=== PATIENT | female | born 1995 | race Caucasian/White ===

== ENCOUNTER 2017-05-28 21:24 | Emergency (ER) | payer OTHER ==
[2017-05-28] MEDS ORDERED: Metoclopramide 10 MG/2 ML SDV IV ONE (22:09)
[2017-05-28] MEDS ORDERED: LORazepam 2 MG/ML MDV IVPUSH ONE (22:09)
[2017-05-28] MEDS ORDERED: Sodium Chloride 0.9% 1,000 ML IV ONE (22:09)
[2017-05-28] MEDS ORDERED: methylPREDNISolone Sodium Succinate 125 MG/2 ML SDV IVPUSH ONE (22:09)
[2017-05-28] MEDS ORDERED: Ketorolac 30 MG/ML SDV IVPUSH ONE (22:09)
[2017-05-28] MEDS ORDERED: diphenhydrAMINE 50 MG/ML SDV IVPUSH ONE (22:09)
[2017-05-28] MEDS ORDERED: Sodium Chloride 0.9% 2.5 ML Syringe FLUSH PRN (22:09)
--- NOTE | 2017-05-28 22:13 | EDM.PDOC ---
ED HPI GENERAL MEDICAL PROBLEM - General Chief Complaint: Headache Stated Complaint: SICK Time Seen by Provider: 05/28/17 22:04 - History of Present Illness INITIAL COMMENTS - FREE TEXT/NARRATIVE: HISTORY AND PHYSICAL: History of present illness: The patient is a 21-year-old female who has had a history of migraine headaches since she was 13 years old and usually intercepts of migraine with Imitrex and Zofran but today she was at work when the headache started coming on and she could not take her medications and now she has had intractable vomiting and unable to take her oral Imitrex. Patient only follows with Dr. Olson at [facility] and she has never seen a headache specialist or neurologist. Patient says that usually she gets more headaches around her period and she has been on control to try to help control that. She says she usually gets migraines about 3-4 times a month and they are usually in the back of her head across the frontal area and this headache is typical in character and quality. She has had no recent fevers chills head trauma neck pain upper respiratory symptoms or sinus issues. She has no abdominal pain except when she gets the nausea and she starts vomiting. Patient was hyperventilating in triage and very anxious and she had a near fainting episode all waiting to come back and she says this is not typical of her but then again usually the Zofran will control her vomiting and it did not help this evening which has stressed her. She currently has no extremity complaints and no neurosensory changes in her extremities and no neck or back pain. Review of systems: As per history of present illness and below otherwise all systems reviewed and negative. Past medical history: As per history of present illness and as reviewed below otherwise noncontributory. Surgical history: As per history of present illness and as reviewed below otherwise noncontributory. Social history: No reported history of drug or alcohol abuse. Family history: As per history of present illness and as reviewed below otherwise noncontributory. Physical exam: Gen.: Well-developed well-nourished female speaking clearly and easily in the ED and is nontoxic. Vital signs are noted by me HEENT: Atraumatic, normocephalic, pupils reactive, negative for conjunctival pallor or scleral icterus, mucous membranes moist, throat clear, neck supple, nontender, trachea midline. There is no cervical adenopathy nuchal rigidity and no scalp tenderness on palpation Lungs: Clear to auscultation, breath sounds equal bilaterally, chest nontender. Heart: S1S2, regular rate and rhythm no overt murmurs Abdomen: Soft, nondistended, nontender. Negative for masses or hepatosplenomegaly. Negative for costovertebral tenderness. Pelvis: Stable nontender. Genitourinary: Deferred. Rectal: Deferred. Extremities: Atraumatic, negative for cords or calf pain. Neurovascular unremarkable. Neuro: Awake, alert, oriented. Cranial nerves II through XII unremarkable. Cerebellum unremarkable. Motor and sensory unremarkable throughout. Exam nonfocal. Diagnostics: As the patient's headache is typical for her I will not to imaging Therapeutics: IV fluids Toradol Reglan Benadryl Ativan Solu-Medrol 2305--patient feels significantly improved and wants to go home and sleep. Impression: Migraine headache Definitive disposition and diagnosis as appropriate pending reevaluation and review of above. 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 Musculoskeletal History: Reports: None Neurological History: Reports: Migraines Psychiatric History: Reports: None Endocrine/Metabolic History: Reports: None Hematologic History: Reports: None Immunologic History: Reports: None Oncologic (Cancer) History: Reports: None Dermatologic History: Reports: None - Infectious Disease History Infectious Disease History: Reports: None - Past Surgical History Head Surgeries/Procedures: Reports: None Social & Family History - Family History Family Medical History: Noncontributory - Tobacco Use Smoking Status *Q: Never Smoker - Caffeine Use Caffeine Use: Reports: Soda - Recreational Drug Use Recreational Drug Use: No ED ROS GENERAL - Review of Systems Review Of Systems: ROS reveals no pertinent complaints other than HPI. ED EXAM, GENERAL - Physical Exam Exam: See Below (See dictation) Course - Vital Signs Last Recorded V/S: Last Vital Signs Temp 36.6 C 05/28/17 21:52 Pulse 78 05/28/17 21:52 Resp 18 05/28/17 21:52 BP 106/67 05/28/17 21:52 Pulse Ox 98 05/28/17 21:52 - Orders/Labs/Meds Orders: Active Orders 24 hr Category Date Time Status Sodium Chloride 0.9% [Saline Flush] Med 05/28/17 22:09 Active 10 ml FLUSH ASDIRECTED PRN Sodium Chloride 0.9% [Saline Flush] Med 05/28/17 22:09 Active 2.5 ml FLUSH ASDIRECTED PRN Saline Lock Insert [OM.PC] Stat Oth 05/28/17 22:09 Ordered Medication Orders Sodium Chloride (Saline Flush) 10 ml FLUSH ASDIRECTED PRN PRN Reason: Keep Vein Open Last Admin: 05/28/17 22:25 Dose: 10 ml Admin: 05/28/17 22:24 Dose: 10 ml Admin: 05/28/17 22:23 Dose: 10 ml Sodium Chloride (Saline Flush) 2.5 ml FLUSH ASDIRECTED PRN PRN Reason: Keep Vein Open Last Admin: 05/28/17 22:22 Dose: 2.5 ml Meds: Medications Generic Name Dose Route Start Last Admin Trade Name Freq PRN Reason Stop Dose Admin Sodium Chloride 10 ml 05/28/17 22:09 05/28/17 22:25 Saline Flush FLUSH 10 ml ASDIRECTED PRN Administration Keep Vein Open Sodium Chloride 2.5 ml 05/28/17 22:09 05/28/17 22:22 Saline Flush FLUSH 2.5 ml ASDIRECTED PRN Administration Keep Vein Open Discontinued Medications Generic Name Dose Route Start Last Admin Trade Name Freq PRN Reason Stop Dose Admin Diphenhydramine HCl 25 mg 05/28/17 22:09 05/28/17 22:24 Benadryl IVPUSH 05/28/17 22:10 25 mg ONETIME ONE Administration Sodium Chloride 1,000 mls @ 999 mls/hr 05/28/17 22:09 05/28/17 22:26 Normal Saline IV 05/28/17 23:09 999 mls/hr STAT ONE Administration Ketorolac Tromethamine 30 mg 05/28/17 22:09 05/28/17 22:25 Toradol IVPUSH 01/09/18 22:10 30 mg ONETIME ONE Administration Lorazepam 1 mg 05/28/17 22:09 05/28/17 22:25 Ativan IVPUSH 05/28/17 22:10 1 mg ONETIME ONE Administration Methylprednisolone Sodium Succinate 125 mg 05/28/17 22:09 05/28/17 22:24 Solu-Medrol IVPUSH 05/28/17 22:10 125 mg ONETIME ONE Administration Metoclopramide HCl 10 mg 05/28/17 22:09 05/28/17 22:23 Reglan IV 05/28/17 22:10 10 mg ONETIME ONE Administration Departure - Departure Time of Disposition: 23:10 Disposition: Home, Self-Care 01 Condition: Good Clinical Impression: Migraine - Discharge Information Referrals: PCP,None [Primary Care Provider] - Forms: ED Department Discharge Additional Instructions: The following information is given to patients seen in the emergency department who are being discharged to home. This information is to outline your options for follow-up care. We provide all patients seen in our emergency department with a follow-up referral. The need for follow-up, as well as the timing and circumstances, are variable depending upon the specifics of your emergency department visit. If you don't have a primary care physician on staff, we will provide you with a referral. We always advise you to contact your personal physician following an emergency department visit to inform them of the circumstance of the visit and for follow-up with them and/or the need for any referrals to a consulting specialist. The emergency department will also refer you to a specialist when appropriate. This referral assures that you have the opportunity for followup care with a specialist. All of these measure are taken in an effort to provide you with optimal care, which includes your followup. Under all circumstances we always encourage you to contact your private physician who remains a resource for coordinating your care. When calling for followup care, please make the office aware that this follow-up is from your recent emergency room visit. If for any reason you are refused follow-up, please contact the [facility] emergency department at and ask to speak to the emergency department charge nurse. [facility] Primary care- Internal Medicine and Family [address] [address] [facility] [address] [facility] [address] [place] [address] [facility] Specialty care-Neurology Professional Building [address] [place] [address], [address] [place] [address] Please call and schedule a follow-up with your provider at [facility] and/ or also call and schedule with our providers or neurologist as we discussed. Please use your home medications as needed for your headaches and push hydration and rest. Return to ER as needed and as discussed - My Orders Last 24 Hours: My Active Orders 05/28/17 22:09 Sodium Chloride 0.9% [Saline Flush] 10 ml FLUSH ASDIRECTED PRN Sodium Chloride 0.9% [Saline Flush] 2.5 ml FLUSH ASDIRECTED PRN Saline Lock Insert [OM.PC] Stat - Assessment/Plan Last 24 Hours: My Active Orders 05/28/17 22:09 Sodium Chloride 0.9% [Saline Flush] 10 ml FLUSH ASDIRECTED PRN Sodium Chloride 0.9% [Saline Flush] 2.5 ml FLUSH ASDIRECTED PRN Saline Lock Insert [OM.PC] Stat
[2017-05-28] MEDS: Sodium Chloride 0.9% 10 ML Syringe FLUSH PRN ×3 (22:23→22:25)
== END 2017-05-28 23:40 | disposition home or self-care (01) ==
LOC: MW.ED 21:24
DX: G43.909 Migraine, unspecified, not intractable, without status migrainosus (principal); Z88.1 Allergy status to other antibiotic agents
CPT/HCPCS: 96361; 96374; 96375; 99284; J1200; J1885; J2060; J2765; J2930; J7040; 99283

== ENCOUNTER 2021-01-13 16:58 | Emergency (ER) | payer BC, OTHER ==
--- NOTE | 2021-01-13 18:44 | CR ---
Indication: Fell down stairs and heard a pop Technique: Three views right knee Comparison: None Findings: Bones: Alignment is normal. No fractures or bone lesions. Joint spaces: Unremarkable. Soft tissues: Small suprapatellar effusion. Impression: Small suprapatellar effusion. No acute osseous abnormality. Dictated by Alyce Preston MD @ 01/13/2021 6:42:[address] Alyce Preston @ Jan 13 2021 6:42PM
--- NOTE | 2021-01-13 20:47 | EDM.PDOC ---
ED HPI GENERAL MEDICAL PROBLEM - General Chief Complaint: Lower Extremity Injury/Pain Stated Complaint: RT KNEE PAIN Time Seen by Provider: 01/13/21 19:55 Source of Information: Reports: Patient History Limitations: Reports: No Limitations - History of Present Illness INITIAL COMMENTS - FREE TEXT/NARRATIVE: HISTORY AND PHYSICAL: History of present illness: Patient is a 25-year-old female who presents emergency room today with concern of right knee injury that occurred today after falling down the stairs. Patient states that she was at the top step and twisted her right knee and fell down approximately 5 steps. Patient states that she landed on her side and did not hit her head or lose consciousness. Patient states that since the injury, she has had swelling and pain of her right knee but denies any other pain or symptoms. Patient states she also did injured the knee initially 2 months ago and feels that she possibly reinjured what ever had occurred then. Patient denies any other symptoms or concerns. Patient denies fever, chills, chest pain, shortness of breath, or cough. Denies headache, neck stiff ness, change in vision, syncope, or near syncope. Denies nausea, vomiting, abdominal pain, diarrhea, constipation, or dysuria. Has not noted any blood in urine or stool. Patient has been eating and drinking appropriately. Review of systems: As per history of present illness and below otherwise all systems reviewed and negative. Past medical history: As per history of present illness and as reviewed below otherwise noncontributory. Surgical history: As per history of present illness and as reviewed below otherwise noncontributory. Social history: See social history for further information Family history: As per history of present illness and as reviewed below otherwise noncontributory. Physical exam: General: Patient is alert, oriented, and in no acute distress. Patient laying comfortably on exam table. Vitals stable and reviewed by me HEENT: Atraumatic, normocephalic, pupils equal and reactive bilaterally, negative for conjunctival pallor or scleral icterus, mucous membranes moist, TMs normal bilaterally, throat clear, neck supple, nontender, trachea midline. No drooling or trismus noted. No meningeal signs. No hot potato voice noted. Lungs: Clear to auscultation, breath sounds equal bilaterally, chest nontender. Heart: S1S2, regular rate and rhythm without overt murmur Abdomen: Soft, nondistended, nontender. Negative for masses or hepatosplenomegaly. Negative for costovertebral tenderness. Pelvis: Stable nontender. Genitourinary: Deferred. Rectal: Deferred. Skin: Intact, warm, dry. No lesions or rashes noted. Extremities: The right knee is mild to moderately edematous in comparison to the left with pain to palpation of the medial compartment of the joint. Patient does have limited range of motion of the right knee due to pain and does have pain with bearing weight of the right knee. There is no erythema/ecchymosis noted of the knee and no overlying rashes or lesions. Dorsalis pedis and posterior tibial pulses are grossly intact of the right lower extremity with capillary refill less than 2 seconds. Intact sensation light and deep touch of the complete right lower extremity. All compartments are soft. Otherwise, atraumatic, negative for cords or calf pain. Neurovascular unremarkable. Neuro: Awake, alert, oriented. Cranial nerves II through XII unremarkable. Cerebellum unremarkable. Motor and sensory unremarkable throughout. Exam nonfocal. Notes: Signs and symptoms that were prompt return to the ED thoroughly discussed with patient. Discussed importance for follow-up with an orthopedic provider. Voices understanding and is agreeable to plan of care. Denies any further questions or concerns at this time. Diagnostics: Right knee x-ray Therapeutics: Right knee immobilizer, crutches Prescription: None Impression: Right knee injury, rule out ligamentous versus meniscus injury Plan: 1. Rest, ice, elevate the affected extremity. You can apply ice 15 minutes on, 15 minutes off. Use crutches and knee immobilizer until follow-up with an orthopedic provider. 2. Tylenol and/or Ibuprofen as directed for pain management or discomfort. 3. Follow up with the Orthopedic provider as discussed. Return to the ED as needed and as discussed. Definitive disposition and diagnosis as appropriate pending reevaluation and review of above. 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 Musculoskeletal History: Reports: None Neurological History: Reports: Migraines Psychiatric History: Reports: Depression Endocrine/Metabolic History: Reports: None Hematologic History: Reports: None Immunologic History: Reports: None Oncologic (Cancer) History: Reports: None Dermatologic History: Reports: None - Infectious Disease History Infectious Disease History: Reports: None - Past Surgical History Head Surgeries/Procedures: Reports: None Social & Family History - Family History Family Medical History: No Pertinent Family History - Tobacco Use Tobacco Use Status *Q: Current Every Day Tobacco User Years of Tobacco use: 3 Packs/Tins Daily: 0.1 - Caffeine Use Caffeine Use: Reports: Soda - Recreational Drug Use Recreational Drug Use: Yes Drug Use in Last 12 Months: Yes Recreational Drug Type: Reports: Marijuana/Hashish Recreational Drug Use Frequency: Daily Review of Systems - Review of Systems Review Of Systems: Comprehensive ROS is negative, except as noted in HPI. ED EXAM, GENERAL - Physical Exam Exam: See Below (see dictation) Course - Vital Signs Last Recorded V/S: Last Vital Signs Temp 97 F 01/13/21 17:41 Pulse 90 01/13/21 17:41 Resp 16 01/13/21 17:41 BP 132/78 01/13/21 17:41 Pulse Ox 95 01/13/21 17:41 - Orders/Labs/Meds Orders: Active Orders 24 hr Category Date Time Status DME for Discharge [COMM] Stat Oth 01/13/21 20:47 Ordered Departure - Departure Time of Disposition: 20:47 Disposition: Home, Self-Care 01 Clinical Impression: Right knee injury Qualifiers: Encounter type: initial encounter Qualified Code(s): S89.91XA - Unspecified injury of right lower leg, initial encounter - Discharge Information Referrals: Reinaldo Reyes MD [Primary Care Provider] - Forms: ED Department Discharge Additional Instructions: The following information is given to patients seen in the emergency department who are being discharged to home. This information is to outline your options for follow-up care. We provide all patients seen in our emergency department with a follow-up referral. The need for follow-up, as well as the timing and circumstances, are variable depending upon the specifics of your emergency department visit. If you don't have a primary care physician on staff, we will provide you with a referral. We always advise you to contact your personal physician following an emergency department visit to inform them of the circumstance of the visit and for follow-up with them and/or the need for any referrals to a consulting specialist. The emergency department will also refer you to a specialist when appropriate. This referral assures that you have the opportunity for follow-up care with a specialist. All of these measure are taken in an effort to provide you with optimal care, which includes your follow-up. Under all circumstances we always encourage you to contact your private physician who remains a resource for coordinating your care. When calling for follow-up care, please make the office aware that this follow-up is from your recent emergency room visit. If for any reason you are refused follow-up, please contact the [facility] Emergency Department at and asked to speak to the emergency department charge nurse. [facility] Primary Care [address] [place] [address] [place] [address] [facility] Specialty Care - Orthopedic Clinic Professional Building [address] [place] [address], [address] [place] [address] 1. Rest, ice, elevate the affected extremity. You can apply ice 15 minutes on, 15 minutes off. Use crutches and knee immobilizer until follow-up with an orthopedic provider. 2. Tylenol and/or Ibuprofen as directed for pain management or discomfort. 3. Follow up with the Orthopedic provider as discussed. Return to the ED as needed and as discussed. Sepsis Event Note (ED) - Evaluation Sepsis Screening Result: No Definite Risk - Focused Exam Vital Signs: Vital Signs Temp Pulse Resp BP Pulse Ox 01/13/21 17:41 97 F 90 16 132/78 95 - My Orders Last 24 Hours: My Active Orders 01/13/21 20:47 DME for Discharge [COMM] Stat - Assessment/Plan Last 24 Hours: My Active Orders 01/13/21 20:47 DME for Discharge [COMM] Stat
== END 2021-01-13 21:22 | disposition home or self-care (01) ==
LOC: MW.ED 16:58
DX: S89.91XA Unspecified injury of right lower leg, initial encounter (principal); Z88.1 Allergy status to other antibiotic agents; Z72.0 Tobacco use; W10.8XXA Fall (on) (from) other stairs and steps, initial encounter
CPT/HCPCS: 73562-26-RT; 73562-RT; 99283

== ENCOUNTER 2021-10-27 18:21 | Emergency (ER) | payer BC, OTHER ==
[2021-10-27] MEDS ORDERED: Sodium Chloride 0.9% 1,000 ML IV ONE (19:24)
[2021-10-27] MEDS ORDERED: Sodium Chloride 0.9% 2.5 ML Syringe FLUSH PRN (19:24)
[2021-10-27] MEDS ORDERED: Sodium Chloride 0.9% 10 ML Syringe FLUSH PRN (19:24)
[2021-10-27 20:24] LABS: BLOOD UREA NITROGEN,BUN 12 mg/dL (7.0-18.0); CARBON DIOXIDE,CO2 24.8 mmol/L (21.0-32.0); CHLORIDE,CL 104 mmol/L (98-107); GLUCOSE RANDOM 101 mg/dL (74-106); POTASSIUM,K 3.6 mmol/L (3.5-5.1); SODIUM,NA 138 mmol/L (136-145)
[2021-10-27 20:25] LABS: ESTIMATED GFR > 60.0 ml/min
[2021-10-27] MEDS ORDERED: Ketorolac 30 MG/ML SDV IVPUSH ONE (21:10)
[2021-10-27] MEDS ORDERED: diphenhydrAMINE 50 MG/ML SDV IVPUSH ONE (21:10)
[2021-10-27] MEDS ORDERED: Ondansetron 4 MG/2 ML SDV IVPUSH ONE (21:11)
== END 2021-10-27 21:28 | disposition home or self-care (01) ==
LOC: MW.ED 18:21
DX: G43.909 Migraine, unspecified, not intractable, without status migrainosus (principal); R55 Syncope and collapse; Z88.1 Allergy status to other antibiotic agents; Z79.899 Other long term (current) drug therapy
CPT/HCPCS: 36415; 70450; 71045; 80053; 84484; 84703; 85025; 93005; 96361; 96374; 96375; 99284; J1200; J1885; J2405; J3490; J7030; 93010

== ENCOUNTER 2021-11-24 20:43 | Emergency (ER) | payer OTHER ==
[2021-11-24] MEDS ORDERED: Sodium Chloride 0.9% 1,000 ML IV ONE (21:48)
[2021-11-24] MEDS ORDERED: Sodium Chloride 0.9% 10 ML Syringe FLUSH PRN (21:48)
[2021-11-24] MEDS ORDERED: Sodium Chloride 0.9% 2.5 ML Syringe FLUSH PRN (21:48)
[2021-11-24] MEDS ORDERED: diphenhydrAMINE 50 MG/ML SDV IVPUSH ONE (22:24)
[2021-11-24] MEDS ORDERED: Metoclopramide 10 MG/2 ML SDV IVPUSH ONE (22:24)
[2021-11-24] MEDS ORDERED: Ketorolac 30 MG/ML SDV IVPUSH ONE (22:24)
[2021-11-24 22:38] LABS: BLOOD UREA NITROGEN,BUN 11 mg/dL (7.0-18.0); CARBON DIOXIDE,CO2 23.8 mmol/L (21.0-32.0); CHLORIDE,CL 102 mmol/L (98-107); GLUCOSE RANDOM 108 mg/dL (74-106); POTASSIUM,K 3.4 mmol/L (3.5-5.1); SODIUM,NA 136 mmol/L (136-145)
[2021-11-24 22:39] LABS: ESTIMATED GFR 104 mL/min (>60)
== END 2021-11-24 23:47 | disposition home or self-care (01) ==
LOC: MW.ED 20:43
DX: G43.909 Migraine, unspecified, not intractable, without status migrainosus (principal); Z88.1 Allergy status to other antibiotic agents; Z79.899 Other long term (current) drug therapy
CPT/HCPCS: 36415; 80053; 84703; 85025; 93005; 96361; 96374; 96375; 99285; J1200; J1885; J2765; J3490; J7030; 93010; 99284

== ENCOUNTER 2022-02-15 22:23 | Emergency (ER) | payer SELFPAY ==
[2022-02-15] MEDS ORDERED: Metoclopramide 10 MG/2 ML SDV IVPUSH ONE (23:11)
[2022-02-15] MEDS ORDERED: Ketorolac 30 MG/ML SDV IVPUSH ONE (23:11)
[2022-02-15] MEDS ORDERED: Lactated Ringers 1,000 ML IV ONE (23:11)
[2022-02-15] MEDS ORDERED: diphenhydrAMINE 50 MG/ML SDV IVPUSH ONE (23:11)
== END 2022-02-16 00:32 | disposition home or self-care (01) ==
LOC: MW.ED 22:23
DX: G43.909 Migraine, unspecified, not intractable, without status migrainosus (principal); Z88.1 Allergy status to other antibiotic agents
CPT/HCPCS: 96361; 96374; 96375; 99283; J1200; J1885; J2765; J7120; 99282

== ENCOUNTER 2022-08-04 14:11 | Emergency (ER) | payer SELFPAY ==
[2022-08-04] MEDS ORDERED: Sodium Chloride 0.9% 1,000 ML IV ONE (16:47)
[2022-08-04] MEDS ORDERED: Ondansetron 4 MG/2 ML SDV IVPUSH ONE (16:47)
[2022-08-04 17:37] LABS: CARBON DIOXIDE,CO2 21.4 mmol/L (21.0-32.0); POTASSIUM,K 3.8 mmol/L (3.5-5.1)
[2022-08-04] MEDS ORDERED: Acetaminophen 500 MG Tab PO ONE (17:49)
== END 2022-08-04 18:20 | disposition home or self-care (01) ==
LOC: MW.ED 14:11
DX: O99.351 Diseases of the nervous system complicating pregnancy, first trimester (principal); G43.909 Migraine, unspecified, not intractable, without status migrainosus; Z88.1 Allergy status to other antibiotic agents; Z3A.09 9 weeks gestation of pregnancy
CPT/HCPCS: 36415; 80053; 81003; 84702; 85025; 96360; 99284; J2405; J7030

== ENCOUNTER 2022-09-19 22:00 | Emergency (ER) | payer OTHER ==
[2022-09-20 00:03] LABS: BASOPHILS PERCENT AUTO 0.1 % (0.0-1.5); EOSINOPHILS ABSOLUTE AUTO 0.1 K/uL (0.0-0.7); EOSINOPHILS PERCENT AUTO 0.7 % (0.0-7.0); HEMATOCRIT 37.6 % (36.0-46.0); HEMOGLOBIN 12.8 g/dL (12.0-16.0); LYMPHOCYTES ABSOLUTE AUTO 1.9 K/uL (0.6-2.4); LYMPHOCYTES PERCENT AUTO 21.1 % (16.0-40.0); MEAN CORPUSCULAR HEMOGLOBIN 31.8 pg (27.0-32.0); MEAN CORPUSCULAR VOLUME 93.5 fL (80.0-98.0); MONOCYTES ABSOLUTE AUTO 0.6 K/uL (0.0-0.8); MONOCYTES PERCENT AUTO 6.4 % (0.0-15.0); NEUTROPHILS ABSOLUTE AUTO 6.3 K/uL (1.4-5.7); NEUTROPHILS PERCENT AUTO 71.7 % (48.0-80.0); NRBC ABSOLUTE 0 K/uL; PLATELET COUNT,PLT 252 K/uL (150-400); RED BLOOD CELL COUNT 4.02 M/uL (4.30-5.90); WHITE BLOOD CELL COUNT,WBC 8.76 K/uL (4.0-11.0)
[2022-09-20] MEDS ORDERED: Sodium Chloride 0.9% 10 ML Syringe FLUSH PRN (00:28)
[2022-09-20] MEDS ORDERED: Sodium Chloride 0.9% 2.5 ML Syringe FLUSH PRN (00:28)
[2022-09-20] MEDS ORDERED: Sodium Chloride 0.9% 1,000 ML IV ONE (00:28)
[2022-09-20 00:31] LABS: A/G RATIO 0.9 (0.9-1.6); ALANINE AMINOTRANSFERASE,ALT 19 IU/L (14-63); ALBUMIN 3.4 g/dL (3.4-5.0); ALKALINE PHOSPHATASE 58 U/L (46-116); ASPARTATE AMNIOTRANSFERASE,AST 15 IU/L (15-37); BILIRUBIN TOTAL 0.2 mg/dL (0.2-1.0); BLOOD UREA NITROGEN,BUN 8 mg/dL (7.0-18.0); CALCIUM 9.3 mg/dL (8.5-10.1); CARBON DIOXIDE,CO2 21.8 mmol/L (21.0-32.0); CHLORIDE,CL 104 mmol/L (98-107); CREATININE 0.7 mg/dL (0.6-1.0); EST CRCL DRUG DOSING (CG) 86.71 mL/min; GLUCOSE RANDOM 93 mg/dL (74-106); POTASSIUM,K 3.9 mmol/L (3.5-5.1); SODIUM,NA 140 mmol/L (136-145)
[2022-09-20 00:34] LABS: ESTIMATED GFR 121 mL/min (>60)
[2022-09-20] MEDS ORDERED: Promethazine 25 MG/ML SDV IM ONE (00:55)
== END 2022-09-20 01:31 | disposition home or self-care (01) ==
LOC: MW.ED 22:00
DX: O99.352 Diseases of the nervous system complicating pregnancy, second trimester (principal); G43.909 Migraine, unspecified, not intractable, without status migrainosus; O99.282 Endocrine, nutritional and metabolic diseases complicating pregnancy, second trimester; E86.0 Dehydration; Z3A.15 15 weeks gestation of pregnancy; Z88.1 Allergy status to other antibiotic agents
CPT/HCPCS: 36415; 80053; 84484; 85025; 96360; 96372; 99284; J2550; J3490; J7030; 99283

== ENCOUNTER 2024-09-13 07:12 | Emergency (ER) | payer BC, OTHER ==
[2024-09-13] MEDS ORDERED: Sodium Chloride 0.9% 20 ML SDV IV PRN (07:33)
[2024-09-13] MEDS ORDERED: Sodium Chloride 0.9% 10 ML Syringe FLUSH PRN (07:33)
[2024-09-13] MEDS ORDERED: Sodium Chloride 0.9% 2.5 ML Syringe FLUSH PRN (07:33)
[2024-09-13] MEDS: diphenhydrAMINE 50 MG/ML SDV IVPUSH ONE (07:53)
[2024-09-13] MEDS: Metoclopramide 10 MG/2 ML SDV IVPUSH ONE (07:53)
[2024-09-13] MEDS: Sodium Chloride 0.9% 1,000 ML IV ONE (07:54)
[2024-09-13 08:06] LABS: APPEARANCE,URINE CLEAR; BILIRUBIN,URINE NEGATIVE (NEGATIVE); COLOR,URINE YELLOW; GLUCOSE,URINE NEGATIVE (NEGATIVE); KETONES,URINE TRACE mg/dL (NEGATIVE); LEUKOCYTE ESTERASE,URINE NEGATIVE (NEGATIVE); NITRITE,URINE NEGATIVE (NEGATIVE); OCCULT BLOOD,URINE NEGATIVE (NEGATIVE); PH,URINE 6.5 (5.0-8.0); PROTEIN,URINE TRACE mg/dL (NEGATIVE); UROBILINOGEN,URINE 0.2 EU/dL (<2.0)
[2024-09-13 08:13] LABS: BACTERIA,URINE NOT SEEN (NEGATIVE); EPITHELIAL CELLS,URINE FEW (NONE-FEW); RBC,URINE 0-1 (0-2/HPF); WBC,URINE 0-1 (0-5/HPF)
[2024-09-13] MEDS: Ketorolac 30 MG/ML SDV IVPUSH ONE (08:22)
== END 2024-09-13 09:40 | disposition left against medical advice (07) ==
LOC: MW.ED 07:12
DX: G43.909 Migraine, unspecified, not intractable, without status migrainosus (principal); Z88.1 Allergy status to other antibiotic agents
CPT/HCPCS: 81001; 81025; 96361; 96374; 96375; 99284; J1200; J1885; J2765; J7030; 99283